=== PATIENT | female | born 2000 | race Hispanic/Latino ===

== ENCOUNTER 2025-06-23 07:34 | Emergency (ER) | payer MEDICAID ==
[~2025-06-23] VITALS: Ht 167.6 cm; Wt 142.4 kg
--- NOTE | 2025-06-23 08:00 | EKG ---
[facility] Test Date: 2025-06-23 Test Time: 07:55:45 Pat Name: BRADLY ACEVES Department: ED Room: Gender: F Supervisor Case Loading: 0723 : 2000 Requested By: KHURRAM LAWS Order Number: [id number] Reading MD: Ozzie Medrano Measurements Intervals [place] Rate: 64 P: 3 [place]: 189 QRS: 12 QRSD: 90 T: 6 QT: 434 QTc: 449 Interpretive Statements Sinus rhythm No previous ECG available for comparison Electronically Signed On 06-23-2025 17:25:21 CDT by Ozzie Medrano Please click the below link to view image of tracing.
[2025-06-23 08:43] LABS: IMMATURE GRANULOCYTE ABSOLUTE 0.02 K/uL (0-1); NUCLEATED RED BLOOD CELLS 0.0 % (0.0-0.19); PLATELET COUNT (AUTO) 308 K/uL (130-400); RED BLOOD CELL COUNT(AUTO) 4.46 MIL/uL (4.00-5.50); RED CELL DISTRIBUTION WIDTH 15.8 % (11.0-15.5); WHITE BLOOD COUNT (AUTO) 4.8 K/uL (4.8-10.8)
[2025-06-23 08:56] LABS: CREATINE KINASE, TOTAL 181.0 U/L (21-232); CREATININE 0.8 mg/dL (0.5-1.0); GLOMERULAR FILTR. RATE CALC 104.0 mL/min (>90); GLUCOSE,RANDOM 107.0 mg/dL (70-105); SODIUM SERUM 141.0 mmol/L (136-145); UREA NITROGEN, BLOOD 9.0 mg/dL (7-18)
[2025-06-23 09:08] VITALS: BP 134/78; PULSE 75; RESP 13; TEMP 98.2; O2SAT 99
--- NOTE | 2025-06-23 09:20 | ERN ---
General Chief Complaint: Chest Pain Stated Complaint: CP Time Seen by MD: 07:38 Time Seen by Midlevel: 07:38 Source: patient History of Present Illness Initial Comments Patient is a morbidly obese 25-year-old female presenting to the emergency department for evaluation of the chest pain. Denies any other symptoms Allergies: Coded Allergies: No Known Drug Allergies (Unverified Allergy, Unknown, 06/23/25) Past Medical History Past Medical History: No Pertinent History Medical History Other: denies pmhx Past Surgical History: None ROS Dictation CONSTITUTIONAL: Negative except for HPI HEAD/FACE: Negative except for HPI EENT: Negative except for HPI RESPIRATORY: Negative except for HPI GASTROINTESTINAL/ABDOMINAL: Negative except for HPI GENITOURINARY: Negative except for HPI MUSCULOSKELETAL: Negative except for HPI INTEGUMENTARY: Negative except for HPI NEUROLOGICAL/PSYCH: Negative except for HPI HEMATOLOGIC/LYMPHATIC: Negative except for HPI All Systems Negative, Except as noted above. 13 point review of systems assessed and all negative except for above. Physical Exam Physical Exam Dictation Vital Signs reviewed General Appearance: Alert, oriented x 3, no acute distress, well developed, nourished. Head and Face: non-traumatic. Eyes: PERRL, pink conjunctivas, eyelid no trauma, anterior chamber with arcus senilis. Ears: Pinnas intact and no signs of trauma or erythema ear canals clear and no discharge TM no erythema Nose: No discharge, no bleeding. Oropharynx: Mouth normal, tongue pink, pharynx clear,no erythema, tonsils no exudates, no abscesses noted, mucous membrane moist Neck: Supple, non-tender, no thyromegaly, no masses, no JVD, no bruits Breast:Deferred Chest:No tenderness, no crepitus, no paradoxical movement, no retractions Lungs:Clear, well-ventilated, symmetric, no rales, no wheezing, no rhonchi, no stridor, good breath sounds bilaterally Heart: Regular rate, regular rhythm, no murmur, no gallops Vascular: no peripheral edema, Abdomen: Soft, positive bowel sounds, nondistended, no guarding, nontender, no rebound, no masses no hepatomegaly, no splenomegaly, no Daniel's sign, no hernias. Rectal: Deferred Genital: Deferred Neurological: Normal speech, motor function intact, sensory function intact Musculoskeletal: Neck nontender, full range of motion, back nontender, full range of motion, Extremities: nontender, full range of motion Skin: Color pink, dry, no turgor, no rash, no lacerations, no abrasions, no contusions. Lymphatic: Deferred Results Laboratory and Microbiology Lab and Micro Result Laboratory Tests Test 06/23/25 08:12 White Blood Count 4.8 K/uL (4.8-10.8) Red Blood Count 4.46 MIL/uL (4.00-5.50) Hemoglobin 12.7 g/dL (12.0-16.0) Hematocrit 38.9 % (36-48) Mean Corpuscular Volume 87.2 fL (79-99) Mean Corpuscular Hemoglobin 28.5 pg (27.0-33.0) Mean Corpuscular Hemoglobin Concent 32.6 g/dL (32.0-36.0) Red Cell Distribution Width 15.8 % (11.0-15.5) H Platelet Count 308 K/uL (130-400) Mean Platelet Volume 9.9 fL (7.5-10.5) Immature Granulocyte % (Auto) 0.4 % (0-1) Neutrophils (%) (Auto) 49.4 % (40.0-77.0) Lymphocytes (%) (Auto) 39.7 % (21.0-51.0) Monocytes (%) (Auto) 7.6 % (3.0-13.0) Eosinophils (%) (Auto) 2.5 % (0.0-8.0) Basophils (%) (Auto) 0.4 % (0.0-5.0) Neutrophils # (Auto) 2.4 K/uL (1.8-7.7) Lymphocytes # (Auto) 1.9 K/uL (1.0-4.8) Monocytes # (Auto) 0.4 K/uL (0.1-1.0) Eosinophils # (Auto) 0.12 K/uL (0.00-0.70) Basophils # (Auto) 0.02 K/uL (0.00-0.20) Absolute Immature Granulocyte (auto 0.02 K/uL (0-1) Nucleated Red Blood Cells 0.0 % (0.0-0.19) Sodium Level 141 mmol/L (136-145) Potassium Level 3.5 mmol/L (3.5-5.1) Chloride Level 107 mmol/L (101-111) Carbon Dioxide Level 26 mmol/L (21-32) Blood Urea Nitrogen 9 mg/dL (7-18) Creatinine 0.8 mg/dL (0.5-1.0) Glomerular Filtration Rate Calc 104 mL/min (>90) Random Glucose 107 mg/dL (70-105) H Total Calcium 8.1 mg/dL (8.5-10.1) L Magnesium Level 2.00 mg/dL (1.80-2.40) Total Creatine Kinase 181 U/L (21-232) Troponin I High Sensitivity 5 ng/L (4-50) Serum Test, Qualitative NEGATIVE (NEGATIVE) Labs Reviewed?: Yes MDM MDM: Differential diagnosis: Acute coronary syndrome, anxiety, dehydration, electrolyte abnormality There are no social concerns with this patient. Prescription drug management Prescriptions will include: None Medical management and examination interpretation discussions were had by me with other qualified healthcare professionals as indicated for the patient's care. ED Course Orders Procedure Category Date Status Time 12 Lead Ekg Tracing- EKG 06/23/25 Complete Technical 07:55 Cbc With Differential LAB 06/23/25 Complete 07:55 Basic Metabolic Panel LAB 06/23/25 Complete 07:55 Creatine Kinase, Total LAB 06/23/25 Complete 07:55 Testing, LAB 06/23/25 Complete Serum Hcg 07:55 Troponin I High LAB 06/23/25 Complete Sensitivity 07:55 Chest 1vw RAD 06/23/25 Taken 07:55 Magnesium LAB 06/23/25 Complete 07:55 Vital Signs Date Time Temp Pulse Resp B/P (MAP) Pulse Ox O2 Delivery O2 Flow Rate FiO2 06/23/25 09:08 98.2 75 13 134/78 99 Room Air* 0 06/23/25 07:56 98.2 74 12 163/96 100 Room Air* 0 06/23/25 07:40 98.1 94 18 178/103 100 Room Air* 0 06/23/25 07:37 98.1 94 18 178/103 100 Room Air 0 HEART Score Response (Comments) Value History: Low suspicion (0) 0 EKG: Normal 0 Age: < 45yrs (0) 0 Risk Factors: No known risk factors (0) 0 Initial Troponin: Normal limit (0) 0 HEART Score Risk: Low Risk for MACE (1-3) Total 0 DX & DISP Disposition: Discharge Departure Impression: Primary Impression: Non-cardiac chest pain Condition: Stable Additional Instructions: You were evaluated in the emergency department for chest pain. Your EKG, chest x-ray, and (blood work including cardiac enzymes) were normal. Your overall risk score for heart problems was very low (HEART Score = 0). At this time there was no evidence of your symptoms are detail heart attack or other dangerous condition. Your chest pain may have been caused by muscle strain, acid reflux, anxiety, or another noncardiac cause. It is possible her symptoms may improve with rest, hydration, and [id number] pain medication such as Tylenol or Motrin. Please schedule follow up appointment with your primary care provider within 3-5 days re-evaluation. If you do not have a primary care provider police establish care with one seven. Return to the ER if you develop worsening chest pain or pressure specially with the breaths to be arm, neck, back, or jaw. Referrals: SELF,REFERRAL (PCP) Time of Disposition: 09:18 I have reviewed the case, and I agree with, Diagnosis and Plan I performed the substantive portion of the visit. I have reviewed and personally made and approve the management plan that is documented in the note by myself or the KERI. I acknowledge for responsibility for the patient's management plan. KHURRAM LAWS Jun 23, 2025 09:20
--- NOTE | 2025-06-23 09:50 | NUR ---
DC PATIENT WAS DC'D BY DR MELCHOR TODAY, I DC'D PATIENTS IV WITH CATH STILL INTACT AND APPLIED 2X2 GAUZE WITH COBAN I EXPLAINED TO PATIENT TO FOLLOW UP WITH PCP, PROVIDED INFO BASED ON DIAGNOSIS AND ANSWERED ANY FOLLOW UP QUESTIONS, PATIENT AMBULATED OUT OF ED, NO COMPLICATIONS
--- NOTE | 2025-06-23 10:34 | HMCIMG ---
EXAM: CR Chest, 1 View. CLINICAL HISTORY: cp COMPARISON: None provided. FINDINGS: LUNGS: There is no mass, infiltrate, or acute pulmonary abnormality. PLEURAL SPACES: No evidence of pleural effusion or pneumothorax. MEDIASTINUM: Mild cardiomegaly. Pulmonary vessels are within normal limits. BONES: No acute osseous abnormality. IMPRESSION: Mild cardiomegaly. /Bridger
== END 2025-06-23 09:50 | disposition home or self-care (01) ==
LOC: EDH 07:34
DX: R07.89 Other chest pain (principal); E66.01 Morbid (severe) obesity due to excess calories; Z68.43 Body mass index [BMI] 50.0-59.9, adult
CPT/HCPCS: 36415; 71045; 80048; 82550; 83735; 84484; 84703; 85025; 93005; 99285